=== PATIENT | male | born 1965 | race American Indian/Alaskan Native ===

== ENCOUNTER 2018-05-08 02:10 | Emergency (ER) | payer OTHER ==
--- NOTE | 2018-05-08 02:20 | C.PDOC ---
History Of Present Illness Patient presents with worsening right inguinal pain. State he has had an inguinal hernia( for over a year), which usually self reduces, but he was unable to reduce over the last day and has been having increased pain. No f/c/n/v Time Seen by Provider: 05/08/18 02:20 Chief Complaint (Nursing): Abdominal Pain History Per: Patient History/Exam Limitations: no limitations Onset/Duration Of Symptoms: Gradual Current Symptoms Are (Timing): Still Present Context: Other Severity: Moderate Pain Scale Rating Of: 5 Location Of Pain/Discomfort: RLQ Radiation Of Pain To:: None Quality Of Discomfort: Sharp, Cramping Associated Symptoms: denies: Fever, Chills, Nausea, Vomiting Exacerbating Factors: None Alleviating Factors: None Last Bowel Movement: Yesterday Recent travel outside of the [place]: No Additional History Per: Patient Past Medical History Reviewed: Historical Data, Nursing Documentation, Vital Signs Vital Signs: Last Vital Signs Temp 98.0 F 05/08/18 02:12 Pulse 83 05/08/18 02:12 Resp 15 05/08/18 02:12 BP 110/66 05/08/18 02:12 Pulse Ox 98 05/08/18 02:12 Family History: States: No Known Family Hx - Social History Hx Alcohol Use: Yes Hx Substance Use: No Review Of Systems Constitutional: Negative for: Fever, Chills Cardiovascular: Negative for: Chest Pain Respiratory: Negative for: Shortness of Breath Gastrointestinal: Positive for: Abdominal Pain (ringuinal hernia) Genitourinary: Negative for: Scrotal Pain Musculoskeletal: Negative for: Back Pain Skin: Negative for: Rash Neurological: Negative for: Weakness Psych: Negative for: Anxiety Physical Exam - Physical Exam Appears: Non-toxic, No Acute Distress Skin: Warm, Dry Gastrointestinal/Abdominal: Soft, Tenderness, No Distention, No Guarding, Hernia (right inguinal ,non reducible) Male Genital: No Testicular Tenderness, No Scrotal Swelling Extremity: Normal ROM Extremity: Bilateral: Atraumatic Neurological/Psych: Oriented x3 Gait: Steady ED Course And Treatment - Laboratory Results Result Diagrams: 05/08/18 02:49 05/08/18 02:49 O2 Sat by Pulse Oximetry: 98 Pulse Ox Interpretation: Normal - CT Scan/US CT abd/pelvis Other Rad Studies (CT/US): Read By Radiologist, Radiology Report Reviewed CT/US Interpretation: CT SCAN OF THE ABDOMEN AND PELVIS WITH CONTRAST. CLINICAL HISTORY: PATIENT WITH HX OF HERNIA FOR OVER A YEAR. TONIGHT WAS MOPPING AND EXPERIENCED EXCRUTIATING PAIN. BB ON SITE EVAL FOR INCARCERATED INGUINAL HERNIA (Hx). TECHNIQUE: Multiple axial and coronal CT images were obtained through the abdomen and pelvis after administration of intravenous contrast material. COMMENTS: Marker is noted overlying the right inguinal canal. Partially incarcerated right inguinal hernia containing non-perforated ileal small bowel loops. No evidence of pneumatosis intestinalis. Mild prostatomegaly. Prostatic calcifications are noted. Diffuse thickening of the wall of the bladder is chronic. 1.1 cm left renal simple cyst. The liver is of uniform attenuation without mass or defect. There is no intra or extrahepatic biliary ductal dilatation. The spleen is normal. The gallbladder is within normal limits. The pancreas is of normal contour and attenuation characteristics. There is no evidence of adrenal mass. Both kidneys demonstrate prompt and equal nephrograms. The kidneys are normal in size, shape and configuration. There is no evidence of renal or ureteral mass. No renal or ureteral calculi are identified. There is no hydroureter or hydronephrosis. No evidence for appendicitis. No evidence for small or large bowel obstruction. There is no evidence of abdominal ascites or lymphadenopathy. There is no evidence of intrinsic or extrinsic bladder mass. There is no pelvic ascites or lymphadenopathy. Images of the lung bases show no evidence of pleural or parenchymal mass. There are no pleural effusions. The bony structures are free of lytic or blastic lesions. IMPRESSION: Marker is noted overlying the right inguinal canal. Partially incarcerated right inguinal hernia containing non- perforated ileal small bowel loops. No evidence of pneumatosis intestinalis. Mild prostatomegaly. Prostatic calcifications are noted. Diffuse thickening of the wall of the bladder is chronic. Small amount of free fluid in the right inguinal canal surrounding the hernia. . Electronically signed on May 08, 2018 5:58:38 AM EDT by: Tasia Waters M.D., Certified by [employer], MS[facility], Neuroradiology. Progress Note: ice pack applied. Spoke with surgery. will come and see the pt in the ed Disposition Counseled Patient/Family Regarding: Studies Performed, Diagnosis - Disposition Disposition Time: 02:20 Condition: FAIR Forms: [employer] ([employer]) - Clinical Impression Clinical Impression: Abdominal pain, Inguinal hernia Physician Patient Turnover Patient Signed Over To: Judd Campbell V Handoff Comments: pending surgical eval and disposition
[2018-05-08] MEDS ORDERED: Sodium Chloride 0.9% 1,000 ML IV ONE (02:22)
[2018-05-08] MEDS ORDERED: Iodixanol 320 MG/ML 100 ML BOTTLE IV ONE (02:32)
[2018-05-08 02:52] LABS: BASO % 0.5 % (0.0-2.0); EOS # 0.1 K/uL (0.0-0.7); EOS % 2.6 % (0.0-4.0); HEMOGLOBIN 13.8 g/dL (12.0-18.0); LYMPH # 2.2 K/uL (1.0-4.3); LYMPH % 42.4 % (20.0-40.0); MEAN CELL VOLUME 84.7 fL (80.0-94.0); MEAN CORPUSCULAR HEMOGLOBIN 27.7 pg (27.0-31.0); MEAN CORPUSCULAR HGB CONC 32.6 g/dL (33.0-37.0); MONO # 0.5 K/uL (0.0-0.8); MONO % 9.3 % (0.0-10.0); NEUT # 2.4 K/uL (1.8-7.0); NEUT % 45.2 % (50.0-75.0); NRBC % 0.1 % (0.0-2.0); RBC 4.99 Mil/uL (4.40-5.90); RED CELL DISTRIBUTION WIDTH 14.3 % (11.5-14.5); WHITE BLOOD COUNT 5.2 K/uL (4.8-10.8)
[2018-05-08 03:10] LABS: INR 1.1; PROTHROMBIN TIME 12.4 SECONDS (9.7-12.2)
[2018-05-08 03:13] LABS: ALB/GLOB RATIO 1.3 (1.0-2.1); ALBUMIN 4.2 g/dL (3.5-5.0); ALT/SGPT 13 U/L (21-72); AST/SGOT 19 U/L (17-59); BLOOD UREA NITROGEN 14 mg/dL (9-20); CALCIUM 12.1 mg/dl (8.6-10.4); GFR NON-AFRICAN AMERICAN > 60; LIPASE 92 U/L (23-300)
[2018-05-08] MEDS ORDERED: Morphine 4 MG/ML VIAL ONE (07:01)
--- NOTE | 2018-05-08 07:01 | CP.PCM.CON ---
History of Present Illness - History of Present Illness History of Present Illness: General Surgery Consult Note: Dr Odonnell Pt is a 52M with no significant PMH who presents for RLQ abdominal pain. Pt has known history of right inguinal hernia which has consistently been reducible over the past year. He denies having any changes in bowel movements, nausea or emesis, and his symptoms have been strictly pain related. At the time of consultation it was reportedly incarcerated. Pt was given icepacks and placed in trendelenburg. Approximately 20 mins later upon examination hernia had spontaneously reduced. Pt now only has pain to deep palpation of the inguinal ring. Pt reports he would like his hernia repaired. He is an active smoker. PMH: none PSH: left shoulder labral repair Review of Systems - Review of Systems All systems: reviewed and no additional remarkable complaints except (as per hpi) Past Patient History - Infectious Disease Hx of Infectious Diseases: None - Past Social History Smoking Status: Current Some Days Smoker - PSYCHIATRIC Hx Substance Use: No - SURGICAL HISTORY Hx Surgeries: No Meds Allergies/Adverse Reactions: Allergies Allergy/AdvReac Type Severity Reaction Status Date / Time No Known Allergies Allergy Verified 05/08/18 02:22 Physical Exam - Constitutional Appears: Non-toxic, No Acute Distress - Head Exam Head Exam: NORMOCEPHALIC - Eye Exam Eye Exam: Normal appearance - Respiratory Exam Respiratory Exam: absent: Accessory Muscle Use, Respiratory Distress - Cardiovascular Exam Cardiovascular Exam: REGULAR RHYTHM. absent: Tachycardia - GI/Abdominal Exam GI & Abdominal Exam: Hernia (RIH - reducible), Soft, Tenderness (in right inguinal region). absent: Distended, Firm, Guarding - Rectal Exam Rectal Exam: Deferred Results - Vital Signs Recent Vital Signs: Last Vital Signs Temp 98.0 F 05/08/18 02:12 Pulse 83 05/08/18 02:12 Resp 15 05/08/18 02:12 BP 110/66 05/08/18 02:12 Pulse Ox 98 05/08/18 06:19 - Labs Result Diagrams: 05/08/18 02:49 05/08/18 02:49 Labs: Laboratory Results - last 24 hr 05/08/18 05/08/18 05/08/18 02:49 02:49 02:49 WBC 5.2 RBC 4.99 Hgb 13.8 Hct 42.3 MCV 84.7 MCH 27.7 MCHC 32.6 L RDW 14.3 Plt Count 268 MPV 7.0 L Neut % (Auto) 45.2 L Lymph % (Auto) 42.4 H Ransom % (Auto) 9.3 Eos % (Auto) 2.6 Baso % (Auto) 0.5 Neut # (Auto) 2.4 Lymph # (Auto) 2.2 Ransom # (Auto) 0.5 Eos # (Auto) 0.1 Baso # (Auto) 0.0 PT 12.4 H INR 1.1 APTT 33 Sodium 139 Potassium 4.3 Chloride 107 Carbon Dioxide 28 Anion Gap 9 L BUN 14 Creatinine 0.9 Est GFR ( Amer) > 60 Est GFR (Non-Af Amer) > 60 Random Glucose 90 Calcium 12.1 H Total Bilirubin 0.5 AST 19 ALT 13 L Alkaline Phosphatase 134 H Total Protein 7.3 Albumin 4.2 Globulin 3.1 Albumin/Globulin Ratio 1.3 Lipase 92 Assessment & Plan - Assessment and Plan (Free Text) Assessment: 52M with reducible RIH Plan: counseled on heavy lifting pt does not need emergent repair can follow up in clinic with Dr Odonnell as outpatient to schedule repair in meantime pt should quit smoking to reduce risk of recurrence and wound infect ion, pt counseled on this can wear support garments if hernia is causing aggravation 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
[2018-05-08 07:15] VITALS: PULSE 62; TEMP 97.9
[2018-05-08 08:35] VITALS: BP 101/62; RESP 18; O2SAT 95
--- NOTE | 2018-05-08 08:59 | CT ---
CT abdomen and pelvis HISTORY: Right inguinal hernia. Comparison: None available. TECHNIQUE: Multiple contiguous axial images were performed through the abdomen and pelvis with the use of intravenous contrast. Subsequently, sagittal and coronal reformatted images were obtained. This CT exam was performed using one or more of the following dose reduction techniques: Automated exposure control, adjustment of the mA and/or kV according to patient size, and/or use of iterative reconstruction technique. Findings: Emphysematous changes at the lung bases. Atelectasis at the lung bases. No pleural or pericardial effusion. Prominent liver. Contracted gallbladder. Spleen is preserved. Nodular thickening of the adrenal glands. Mild dilatation of the pancreatic duct. Thickening of the gastric wall. Thickened small bowel loops in the upper and mid abdomen. Right kidney: Multiple scattered calculi throughout the right kidney for example in the upper pole measuring 4 millimeters, in the midpole measuring 7 millimeters, and in the lower pole measuring up to 4 millimeters. No gross hydronephrosis. Left Kidney: 1.2 centimeter low-attenuation lesion in the upper pole of the left kidney demonstrating a Hounsfield unit attenuation postcontrast of 15, indeterminate. Mild fullness of the left renal collecting system. Thick-walled urinary bladder. Layering radiopaque material seen at the posterior aspect of the urinary bladder which may represent layering contrast versus layering calcification versus layering calculi versus additional etiology. Clinical correlation. Correlation with cystoscopy may be helpful clinically indicated. Heterogeneous and prominent prostate with calcifications. Fecal retention in the colon. Appendix is within normal limits. Large right inguinal hernia containing prominently distended bowel loops with a suggestion of fecalization of the bowel loops which appear to be ileal in origin. There is enhancement of the bowel wall within the hernia as well as a moderate amount of fluid within the inguinal canal. These findings would be concerning for a possible incarcerated or partially incarcerated bowel containing hernia. Clinical correlation. Shotty para-aortic and inguinal lymph nodes. Shotty mesenteric lymph nodes. Degenerative changes in the osseous structures. Impression: 1. Large right inguinal hernia containing prominently distended bowel loops with a suggestion of fecalization of the bowel loops which appear to be ileal in origin. There is enhancement of the bowel wall within the hernia as well as a moderate amount of fluid within the inguinal canal. These findings would be concerning for a possible incarcerated or partially incarcerated bowel containing hernia. Clinical correlation. 2. Thickening of the gastric wall. 3. Thickened small bowel loops in the upper and mid abdomen. 4. Thick-walled urinary bladder. Layering radiopaque material seen at the posterior aspect of the urinary bladder which may represent layering contrast versus layering calcification versus layering calculi versus additional etiology. Clinical correlation. Correlation with cystoscopy may be helpful clinically indicated. 5. Prominent scattered right renal calculi. 6. Prominent prostate with calcification. Additional findings as above. A preliminary report was generated at 5:58 a.m. on 05/08/[address] Tasia Waters from [facility].
== END 2018-05-08 09:15 | disposition home or self-care (01) ==
LOC: C.ER 02:10
DX: K40.90 Unilateral inguinal hernia, without obstruction or gangrene, not specified as recurrent (principal)
CPT/HCPCS: 74177; 80053; 83690; 85025; 85610; 85730; 96361; 96374; 96375; 99284; J1885; J2270; J7030; Q9967